=== PATIENT | female | born 1990 | race Caucasian/White ===

== ENCOUNTER 2022-01-04 05:25 | Emergency (ER) | payer MEDICAID, OTHER ==
[~2022-01-04] VITALS: Ht 162.6 cm; Wt 65.0 kg
[~2022-01-04 05:25] MED LIST: IBUP-22
[2022-01-04] MEDS ORDERED: PANTOPRAZOLE SODIUM 40 MG/VIAL IV STA (06:16)
[2022-01-04] MEDS ORDERED: VISCOUS LIDOCAINE 2% 15 ML UDC PO STA (06:16)
[2022-01-04] MEDS ORDERED: MAGNESIUM/ALUMINUM HYDROXIDE/SIMETHICONE 30ML UDC PO STA (06:16)
[2022-01-04] MEDS ORDERED: LORAZEPAM 1MG TABLET PO ONE (06:30)
[2022-01-04] MEDS ORDERED: FAMOTIDINE 20MG TABLET PO ONE (06:30)
[2022-01-04 06:36] LABS: BASOPHILS % 0.9 % (0.0-2.0); HEMATOCRIT. 33.1 % (36.0-48.0); HEMOGLOBIN. 10.4 g/dL (12.0-16.0); LYMPHOCYTES % 35.2 % (20.0-50.0); MEAN CORPUSCULAR VOLUME 76.4 fL (81.0-99.0); MEAN PLATELET VOLUME 7.9 fl (7.4-10.4); MONOCYTES % 7.4 % (2.0-8.0); NEUTROPHILS % 55.5 % (40.0-76.0); PLATELET 429 x1000/uL (130-400); RED BLOOD CELL COUNT 4.33 mill/uL (4.2-5.4); RED CELL DISTRIBUTION WIDTH 17.1 % (11.6-14.6)
[2022-01-04 06:37] LABS: CLARITY URINE CLEAR (CLEAR); COLOR URINE YELLOW (YELLOW); KETONES URINE NEGATIVE (NEGATIVE); LEUKOCYTE ESTERASE URINE TRACE (NEGATIVE); NITRITE URINE NEGATIVE (NEGATIVE); OCCULT BLOOD URINE 1+ (NEGATIVE); PH URINE 6.5 (4.5-8.0); PROTEIN URINE NEGATIVE (NEGATIVE); SPECIFIC GRAVITY URINE 1.003 (1.005-1.030); UROBILINOGEN URINE 0.2 E.U./dL (0.2-1.0)
[2022-01-04 06:41] LABS: CHLORIDE 106 mEq/L (98-107)
[2022-01-04 06:44] LABS: PROTHROMBIN TIME 10.6 sec (9.6-11.0)
[2022-01-04] MEDS ORDERED: MAG-55 MT (08:34)
[2022-01-04 08:38] VITALS: BP 127/67
[2022-01-04] MEDS ORDERED: NITR-87 MT (08:40)
[2022-01-04] MEDS ORDERED: NITROFURANTOIN 100MG M/M CAPSULE PO NR (08:45)
== END 2022-01-04 09:22 | disposition home or self-care (01) ==
LOC: ER 05:25
DX: K29.70 Gastritis, unspecified, without bleeding (principal); N39.0 Urinary tract infection, site not specified; F41.9 Anxiety disorder, unspecified
CPT/HCPCS: 36415; 80053; 81003; 81025; 83690; 84484; 85025; 85610; 93005; 99284; C9113